=== PATIENT | male | born 1995 | race African-American/Black ===

== ENCOUNTER 2021-04-26 13:09 | Emergency (ER) | payer OTHER ==
[~2021-04-26] VITALS: Ht 177.8 cm; Wt 87.0 kg
[2021-04-26] MEDS ORDERED: MUCI120T PO (14:34)
[2021-04-26 14:49] VITALS: BP 120/79
== END 2021-04-26 15:25 | disposition home or self-care (01) ==
LOC: M ED 13:09
DX: J06.9 Acute upper respiratory infection, unspecified (principal)

== ENCOUNTER 2022-01-09 10:31 | Emergency (ER) | payer OTHER ==
[~2022-01-09] VITALS: Ht 180.3 cm; Wt 104.6 kg
[~2022-01-09 10:31] MED LIST: MUCI120T PO
[2022-01-09] MEDS ORDERED: MORPHINE 2 MG/ML 1ML VIAL IV ONE (11:50)
[2022-01-09] MEDS ORDERED: ONDANSETRON 4MG/2ML VIAL IV ONE (11:50)
[2022-01-09 12:28] LABS: BASO % 0.4 % (0.0-1.0); EOS # 0.1 10^3/uL (0.0-0.5); EOS % 1.7 % (0.0-3.0); HEMATOCRIT 45.5 % (42.0-52.0); HEMOGLOBIN 15.7 g/dl (13.5-17.5); LYMPH # 1.4 10^3/uL (1.5-5.0); LYMPH % 26.4 % (24.0-44.0); MEAN CORPUSCULAR HEMOGLOBIN 31.3 pg (27.0-33.0); MEAN CORPUSCULAR HGB CONC 34.5 g/dl (32.0-36.5); MEAN CORPUSCULAR VOLUME 90.6 fl (80.0-96.0); MONO # 0.5 10^3/uL (0.0-0.8); MONO % 9.3 % (2.0-8.0); NEUTROPHILS # 3.3 10^3/uL (1.5-8.5); PLATELET COUNT, AUTOMATED 189 10^3/uL (150-450); RED BLOOD COUNT 5.02 10^6/uL (4.30-6.10); WHITE BLOOD COUNT 5.3 10^3/uL (4.0-10.0)
[2022-01-09] MEDS ORDERED: ISOVUE-370 76% 100ML VIAL As Ordered ONE (12:40)
[2022-01-09 14:18] VITALS: BP 122/76
== END 2022-01-09 14:21 | disposition home or self-care (01) ==
LOC: M ED 10:31
DX: S30.1XXA Contusion of abdominal wall, initial encounter (principal); S20.212A Contusion of left front wall of thorax, initial encounter; R91.1 Solitary pulmonary nodule; W19.XXXA Unspecified fall, initial encounter
CPT/HCPCS: 71260; 74177; 80047; 85025; 96374; 96375; 99284; J2270; J2405; Q9967

== ENCOUNTER 2022-02-27 14:07 | Emergency (ER) | payer OTHER ==
[~2022-02-27] VITALS: Ht 210.8 cm; Wt 109.2 kg
[2022-02-27] MEDS ORDERED: NS 1,000 ML IV ONE (17:40)
[2022-02-27 18:11] LABS: BASO % 0.4 % (0.0-1.0); EOS # 0.1 10^3/uL (0.0-0.5); EOS % 0.9 % (0.0-3.0); HEMATOCRIT 46.6 % (42.0-52.0); HEMOGLOBIN 15.8 g/dl (13.5-17.5); LYMPH # 2.3 10^3/uL (1.5-5.0); LYMPH % 33.8 % (24.0-44.0); MEAN CORPUSCULAR HEMOGLOBIN 31.3 pg (27.0-33.0); MEAN CORPUSCULAR HGB CONC 33.9 g/dl (32.0-36.5); MEAN CORPUSCULAR VOLUME 92.3 fl (80.0-96.0); MONO # 0.7 10^3/uL (0.0-0.8); MONO % 10.1 % (2.0-8.0); NEUTROPHILS # 3.8 10^3/uL (1.5-8.5); NEUTROPHILS % 54.5 % (36.0-66.0); PLATELET COUNT, AUTOMATED 218 10^3/uL (150-450); RED BLOOD COUNT 5.05 10^6/uL (4.30-6.10); WHITE BLOOD COUNT 6.9 10^3/uL (4.0-10.0)
[2022-02-27 19:50] VITALS: BP 149/88
== END 2022-02-27 19:53 | disposition home or self-care (01) ==
LOC: M ED 14:07
DX: M62.82 Rhabdomyolysis (principal)